=== PATIENT | female | born 1965 | race Caucasian/White ===

== ENCOUNTER 2018-12-30 11:24 | Emergency (ER) | payer BC, OTHER ==
[2018-12-30 11:53] VITALS: BP 131/69
--- NOTE | 2018-12-30 13:48 | UC ---
Abdominal Pain Female HPI - HPI Summary HPI Summary: Patient presents to urgent care with some very mild left lower abdominal pain. Patient states she woke up at 4:00 this morning and had some belly pain. Patient states she did not have the urge to defecate but tried. Patient states she had a small nonbloody, nonblack bowel movement. Patient states pain has been present but not overwhelming sense. Patient without minimal, mild nausea, no vomiting. Patient states she also has a little bit of left back pain. Patient unsure whether the pain goes straight through or radiates around the flank. Patient denies fevers or chills. Patient denies history of similar. No dysuria, hematuria. No vaginal discharge, itching, odor. Patient denies history of similar. Patient without history of similar. Patient has never had a colonoscopy. Patient has never had diverticulitis. Patient without any history of abdominal surgeries. Patient's medications reviewed this visit. No analgesia taken today. - History of Current Complaint Chief Complaint: UCAbdominalPain Stated Complaint: ABD PAIN Time Seen by Provider: 12/30/18 11:50 ?: No Onset/Duration: Sudden Onset Severity Initially: Mild Severity Currently: Mild Pain Intensity: 3 Allergies/Adverse Reactions: Allergies Allergy/AdvReac Type Severity Reaction Status Date / Time No Known Allergies Allergy Verified 12/30/18 11:54 Home Medications: Home Medications Montelukast Sodium TAB* [Singulair 10 MG TAB*] 1 tab PO DAILY 12/30/18 [History Confirmed 12/30/18] Topiramate 1 tab PO DAILY 12/30/18 [History Confirmed 12/30/18] predniSONE [Prednisone 5 MG TAB] 2 mg PO DAILY 12/30/18 [History Confirmed 12/30] PMH/Surg Hx/FS Hx/Imm Hx Previously Healthy: Yes - Surgical History Surgical History: Yes Surgery Procedure, Year, and Place: sinus - Family History Known Family History: Positive: Non-Contributory - Social History Lives: With Family Alcohol Use: None Substance Use Type: None Smoking Status (MU): Never Smoked Tobacco Review of Systems All Other Systems Reviewed And Are Negative: Yes Constitutional: Positive: Negative Skin: Positive: Negative Eyes: Positive: Negative ENT: Positive: Negative Respiratory: Positive: Negative Cardiovascular: Positive: Negative Gastrointestinal: Positive: Nausea - mild Genitourinary: Positive: Negative. Negative: Hematuria, Frequency, Vaginal/ Penile Itching, Vaginal/Penile Discharge Motor: Positive: Negative Neurovascular: Positive: Negative Is Patient Immunocompromised?: No Physical Exam - Summary Physical Exam Summary: Vital Signs Reviewed: Yes A+Ox3, no distress, easily changes position Eyes: Conjunctiva Clear, RIN. EOM intact and full ENT: Hearing grossly normal TM x 2 clear, mmoist, uvula midline, no exudate, no erythema Neck: Positive: Supple Respiratory: Positive: No respiratory distress, No accessory muscle use + CTA throughout no w/r Cardiovascular: RRR nl s1, s2 no m/r CBT <2 sec abd soft + BS, minimal LLQ pain no guarding, no rebound, no CVA b/l, no distension, soft Musculoskeletal Exam: DIEHL x 4 without difficulty Strength Intact, ROM Intact Neurological: Positive: Alert, + sensation throughout Psychological: Positive: Normal Response To Family Skin: Positive: no rash, no ecchymosis Triage Information Reviewed: Yes Vital Signs: Initial Vital Signs Temp 98 F 12/30/18 11:50 Pulse 67 12/30/18 11:50 Resp 16 12/30/18 11:50 BP 131/69 12/30/18 11:50 Pulse Ox 100 12/30/18 11:50 Re-Evaluation - Re-Evaluation First Eval Comment: Reviewed in detail CT scan with patient. There is no inflammatory changes noted along the intestine recognizing at a limited study as there was no oral contrast. Patient does have a kidney stone in the left upper pole of the kidney. No inflammatory changes or edema noted of the ureter or any obstructive process. Patient does have trace blood cells in her urine. Discussed with patient department length. It is possible patient did have a small kidney stone which she passed today. Patient comfortable and agreement. directed pt to call 911 or go to an ED if pain recurs, vomiting, fever or any other concerns - will give CD of imaging [place] Abd Pain Female Course/Dx - Course Course Of Treatment: Patient presents to urgent care reporting that she woke up at 4:00 this morning with pain in her left abdomen. Patient states since this time pain has been constant but less intense. Mild nausea but no vomiting. No analgesia taken. Patient also with some mild low back pain on the left as well. Patient denies fevers or chills. No history of similar. Patient has had 2 bowel movements post which were soft but not liquid diarrhea. No sick contacts. Nobody else similar symptoms. On exam, vital signs are stable. Patient does have minimal tenderness on her left mid abdomen. No CVA tenderness. Discussed with patient differential including colitis, diverticulitis, renal colic. Patient is nontoxic-appearing without a fever and no antipyretics to mask. After discussion with patient we'll check a urine as well as do a CT noncontrast. If find obvious source or a custodial took we'll treat appropriately. If CT is not diagnostic we'll either one and patient was prepped for further evaluation to let patient go home and follow-up with primary care provider. Patient comfortable agreement with plan. - Differential Dx/Diagnosis Provider Diagnosis: Renal stones, Abdominal pain Discharge - Sign-Out/Discharge Documenting (check all that apply): Patient Departure All imaging exams completed and their final reports reviewed: Yes - Discharge Plan Condition: Stable Disposition: HOME Patient Education Materials: Kidney Stones (ED) Referrals: Sabino Lopez MD [Primary Care Provider] - Jethro Hurd MD [Medical Doctor] - Additional Instructions: - Stay well-hydrated. Drink plenty of nonalcoholic, non-caffeinated beverages. - Okay to alternate ibuprofen (Motrin, Advil) and Tylenol every 3 hours for pain. Take with food. Do not take for more than to 6 days. - Monitor symptoms closely. If you develop increased pain, vomiting, fever, or any other concerns is recommended to go to the nearest emergency department for further evaluation. As discussed, there was no clear cause for your abdominal pain today however you do have a kidney stone on the left a little bit of blood in your urine which may suggest to passed a kidney stone earlier today. If you develop abdominal pain or fevers, as mentioned, is recommended you seek further evaluation. You have been given the contact information for urologist it is recommended you schedule a follow-up appointment. Contact her doctor or the specialist with questions or concerns. - Billing Disposition and Condition Condition: STABLE Disposition: Home
== END 2018-12-30 13:33 | disposition home or self-care (01) ==
LOC: UCEAST 11:24
DX: N20.0 Calculus of kidney (principal); R10.32 Left lower quadrant pain
CPT/HCPCS: 74176; 81003; 99211; G0463

== ENCOUNTER 2019-01-04 23:44 | Emergency (ER) | payer BC ==
[2019-01-05] MEDS ORDERED: NS 0.9% 1000 ML** 1,000 ML IV ONE ×2 (00:06→00:54)
[2019-01-05] MEDS ORDERED: Ondansetron INJ* 2 MG/ML VIAL IV ONE (00:06)
[2019-01-05] MEDS ORDERED: Morphine 4 MG/ML VIAL (1 ml) 4 MG/ML VIAL IV ONE ×2 (00:06→01:49)
--- NOTE | 2019-01-05 00:12 | ED ---
GI/ HPI - HPI Summary HPI Summary: 53-year-old female presents with flank pain tonight. States she was diagnosed with renal stone this week at . She developed sharp left-sided an hour ago. states that she has been feeling nauseous but no vomiting. No fevers. No dysuria or hematuria. No urgency frequency. No previous abdominal surgeries. Does not currently have a urologist. No medical conditions. Tried some Advil for the pain with no relief. no diarrhea constipation. - History of Current Complaint Chief Complaint: EDFlankPain Time Seen by Provider: 01/05/19 00:00 Stated Complaint: PAIN IN LEFT SIDE PER PT Pain Intensity: 8 - Allergy/Home Medications Allergies/Adverse Reactions: Allergies Allergy/AdvReac Type Severity Reaction Status Date / Time No Known Allergies Allergy Verified 12/30/18 11:54 PMH/Surg Hx/FS Hx/Imm Hx Endocrine/Hematology History: Denies: Hx Anticoagulant Therapy Cardiovascular History: Denies: Hx Myocardial Infarction Musculoskeletal History: Denies: Hx Osteoporosis - Surgical History Surgery Procedure, Year, and Place: sinus Infectious Disease History: No Infectious Disease History: Denies: Traveled Outside the [place] in Last 30 Days - Family History Known Family History: Positive: Non-Contributory Negative: Renal Disease - Social History Alcohol Use: None Substance Use Type: Reports: None Smoking Status (MU): Never Smoked Tobacco Review of Systems Negative: Fever Negative: Chest Pain Negative: Shortness Of Breath Positive: Abdominal Pain, Nausea. Negative: Vomiting, Diarrhea Positive: flank pain. Negative: dysuria All Other Systems Reviewed And Are Negative: Yes Physical Exam Triage Information Reviewed: Yes Vital Signs On Initial Exam: Initial Vitals Temp Pulse Resp BP Pulse Ox 97.3 F 72 18 134/83 100 01/04/19 23:46 01/04/19 23:46 01/04/19 23:46 01/04/19 23:46 01/04/19 23:46 Vital Signs Reviewed: Yes Appearance: Positive: Well-Appearing Skin: Positive: Warm, Dry Head/Face: Positive: Normal Head/Face Inspection Eyes: Positive: Normal, EOMI, RIN, Conjunctiva Clear ENT: Positive: Normal ENT inspection, Pharynx normal, TMs normal Respiratory/Lung Sounds: Positive: Clear to Auscultation, Breath Sounds Present Cardiovascular: Positive: Normal, RRR Abdomen Description: Positive: Soft, CVA Tenderness (L), Other: - tenderness left side abd Bowel Sounds: Positive: Present Musculoskeletal: Positive: Normal Neurological: Positive: Normal Psychiatric: Positive: Normal Diagnostics - Vital Signs Vital Signs Temp Pulse Resp BP Pulse Ox 01/04/19 23:46 97.3 F 72 18 134/83 100 - Laboratory Result Diagrams: 01/05/19 00:13 01/05/19 00:13 Lab Statement: Any lab studies that have been ordered have been reviewed, and results considered in the medical decision making process. - CT abd CT Interpretation Completed By: Radiologist Summary of CT Findings: IMPRESSION: There is a 9 mm proximal left ureteral calculus with mild left obstructive. uropathy. Re-Evaluation - Re-Evaluation First Eval Re-Evaluation Time: 01:33 Change: Improved Comment: feeling better Second Eval Comment: pain returned Third Eval Re-Evaluation Time: 02:30 Change: Improved Comment: pain returned wants to be discharged GIGU Course/Dx - Course Course Of Treatment: 53-year-old female presents with flank pain tonight. States she was diagnosed with renal stone this week at . She developed sharp left-sided an hour ago. states that she has been feeling nauseous but no vomiting. No fevers. No dysuria or hematuria. No urgency frequency. No previous abdominal surgeries. Does not currently have a urologist. No medical conditions. Tried some Advil for the pain with no relief. no diarrhea constipation. On exam tenderness over left flank and left-sided abdomen. wbc normal. renal function is elevated. CT shows 9mm stone at proximal ureter. urine looks more like contaminant. 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 pain is under control so will try outpatient treatment. told to return if pain not under control. patient understand and agrees with plan. - Diagnoses Differential Diagnoses - Female: Pyelonephritis, Urinary Tract Infection, Ureteral Calculi Provider Diagnoses: Ureteral stone Discharge - Sign-Out/Discharge Documenting (check all that apply): Patient Departure Patient Received Moderate/Deep Sedation with Procedure: No - Discharge Plan Condition: Stable Disposition: HOME Patient Education Materials: Ureteral Stones (ED) Referrals: Sabino Lopez MD [Primary Care Provider] - Jethro Hurd MD [Medical Doctor] - Additional Instructions: Take ibuprofen every 6 hours and 1-2 tablet percocet as needed every 4-6 hours Take Zofran every 6 hours for nausea as needed Follow up with urology Return to ED if unable to manage pain at home, develop fever, or any new or worsening symptoms - Billing Disposition and Condition Condition: STABLE Disposition: Home
[2019-01-05 00:34] LABS: ABS Eosinophils 0.1 10^3/ul (0-0.6); ABS Monocytes 0.4 10^3/ul (0-0.8); ABS Neutrophils 3.1 10^3/ul (1.5-7.7); Eosinophil % 1.2 %; Hematocrit 39 % (35-47); Hemoglobin 13.1 g/dL (12.0-16.0); Lymphocyte % 36.1 %; Mean Corpuscular HGB Conc 34 g/dL (31-36); Mean Corpuscular Hemoglobin 30 pg (27-31); Mean Corpuscular Volume 88 fL (80-97); Mean Platelet Volume 9.4 fL (7.4-10.4); Platelet Count 187 10^3/uL (150-450); Red Cell Distribution Width 13 % (10-15); White Blood Count 5.6 10^3/uL (3.5-10.8)
[2019-01-05 00:54] LABS: Albumin 4.2 g/dL (3.2-5.2); Albumin/Globulin Ratio 1.6 (1-3); BUN/Creatinine Ratio 25.5 (8-20); C Reactive Protein 1.98 mg/L (<8.01); Calcium 9.3 mg/dL (8.6-10.3); EGFR African American 63.4 (>60); EGFR Non-African American 52.4 (>60); Globulin 2.6 g/dL (2-4); Potassium 3.5 mmol/L (3.5-5.0); Total Bilirubin 0.3 mg/dL (0.2-1.0); Total Protein 6.8 g/dL (6.4-8.9)
[2019-01-05 00:59] LABS: HCG Pregnancy 0.98 mIU/mL
[2019-01-05] MEDS ORDERED: Ketorolac INJ* 30 MG/ML 1 ML VIAL IV PUSH ONE (01:49)
[2019-01-05 01:55] LABS: Urine Appearance Cloudy; Urine Bacteria Absent (Absent); Urine Bilirubin Negative (Negative); Urine Blood 3+ (Negative); Urine Color Yellow; Urine Glucose Negative (Negative); Urine Ketones 1+ (Negative); Urine Nitrite Negative (Negative); Urine Protein 2+(100 mg/dL) (Negative); Urine Red Blood Cell 3+(>10/hpf) (Absent); Urine Specific Gravity 1.021 (1.010-1.030); Urine Squamous Epithelial Cell Present (Absent); Urine Urobilinogen Negative (Negative); Urine White Blood Cell 1+(6-10/hpf) (Absent)
[2019-01-05] MEDS ORDERED: HYDROmorphone INJ1* 1 MG/ML SYRINGE IV SLOW PU ONE (02:29)
[2019-01-05] MEDS ORDERED: O ndansetron ODT 4MG 5TAB PRPK 4 MG PAK PO ONE (02:31)
[2019-01-05 03:33] VITALS: BP 116/78
== END 2019-01-05 03:31 | disposition home or self-care (01) ==
LOC: ED 23:44
DX: N13.9 Obstructive and reflux uropathy, unspecified (principal); N20.2 Calculus of kidney with calculus of ureter; R11.0 Nausea
CPT/HCPCS: 36415; 74176; 80053; 81003; 81015; 83605; 83690; 84702; 85025; 86140; 87086; 96361; 96374; 96375; 96376; 99284; A9270-GY; J1170; J1885; J2270; J2405